=== PATIENT | male | born 1965 | race Caucasian/White ===

== ENCOUNTER 2019-04-09 12:45 | Emergency (ER) | payer MEDICAID, OTHER ==
[~2019-04-09] VITALS: Ht 167.6 cm; Wt 73.0 kg
[2019-04-09 12:47] VITALS: BP 125/73
[2019-04-09] MEDS ORDERED: ACETAMINOPHEN 325MG TABLET PO ONE (14:00)
== END 2019-04-09 15:45 | disposition home or self-care (01) ==
LOC: ER 12:45
DX: S62.111A Displaced fracture of triquetrum [cuneiform] bone, right wrist, initial encounter for closed fracture (principal); S09.8XXA Other specified injuries of head, initial encounter; I10 Essential (primary) hypertension; F17.200 Nicotine dependence, unspecified, uncomplicated; Z90.49 Acquired absence of other specified parts of digestive tract; Y08.89XA Assault by other specified means, initial encounter; Y93.89 Activity, other specified; Y92.89 Other specified places as the place of occurrence of the external cause; Y99.8 Other external cause status
CPT/HCPCS: 29125; 73110; 73130; 99284

== ENCOUNTER 2019-11-24 16:04 | Emergency (ER) | payer OTHER ==
[~2019-11-24] VITALS: Ht 177.8 cm; Wt 72.0 kg
[2019-11-24 16:31] VITALS: BP 110/70
== END 2019-11-24 17:06 | disposition home or self-care (01) ==
LOC: ER 16:04
DX: M25.511 Pain in right shoulder (principal); F10.20 Alcohol dependence, uncomplicated; Y90.0 Blood alcohol level of less than 20 mg/100 ml
CPT/HCPCS: 99283

== ENCOUNTER 2019-11-24 19:37 | Emergency (ER) | payer OTHER ==
[~2019-11-24] VITALS: Ht 170.2 cm; Wt 60.0 kg
[2019-11-24] MEDS ORDERED: DEXAMETHASONE 4MG TABLET PO ONE (21:15)
[2019-11-25 09:33] VITALS: BP 195/104
[2019-11-25] MEDS ORDERED: AMLODIPINE 5MG TABLET PO ONE (09:45)
== END 2019-11-25 10:02 | disposition home or self-care (01) ==
LOC: ER 19:37
DX: S42.001A Fracture of unspecified part of right clavicle, initial encounter for closed fracture (principal); F10.129 Alcohol abuse with intoxication, unspecified; Y90.9 Presence of alcohol in blood, level not specified; Z59.0 Homelessness; Y35.893A Legal intervention involving other specified means, suspect injured, initial encounter; Y93.89 Activity, other specified; Y92.89 Other specified places as the place of occurrence of the external cause
CPT/HCPCS: 73030; 99283; J8540